=== PATIENT | male | born 1950 | race Caucasian/White ===

== ENCOUNTER 2022-09-14 06:04 | Inpatient (IN) | payer OTHER ==
[~2022-09-14] VITALS: Ht 177.8 cm; Wt 68.5 kg
[2022-09-14] VITALS (7 sets, daily range): BP systolic 127–144; BP diastolic 75–85
[~2022-09-14 06:04] MED LIST: CYCL-707 PO; FINA5TAB2 PO; GABA600T4 PO; GLIM2TAB4 PO; METF10004 PO; METO1TAB32 PO; RAPA8CAP4 PO
[2022-09-14] MEDS ORDERED: LR 1,000 ML IV SCH (06:20)
[2022-09-14] MEDS ORDERED: ceFAZolin SOD 2 GM in IV 1 EA IV ONE (06:30)
[2022-09-14] MEDS ORDERED: VANCOMYCIN HCL 1,000 MG, VIAL MATE ADAPTER 1 EACH in D5W 250 ML IV ONE (07:15)
[2022-09-14] MEDS ORDERED: ONDANSETRON 4MG 2ML VIAL IV PRN ×2 (07:15→11:10)
[2022-09-14] MEDS ORDERED: PERCOCET 5MG/325MG TAB PO PRN (07:15)
[2022-09-14] MEDS ORDERED: GLUCAGON INJ 1MG VIAL SC PRN (07:15)
[2022-09-14] MEDS ORDERED: CYCLOBENZAPRINE 10MG TABLET PO PRN (07:15)
[2022-09-14] MEDS ORDERED: GLUCOSE 4GM CHEW TABLET PO PRN (07:15)
[2022-09-14] MEDS ORDERED: DEXTROSE 50% 50ML SYRINGE IV PRN (07:15)
[2022-09-14] MEDS ORDERED: MIDAZOLAM INJ 2MG/2ML VIAL As Ordered ONE (07:17)
[2022-09-14] MEDS ORDERED: MANNITOL 25% 12.5GM 50ML VIAL As Ordered ONE (07:17)
[2022-09-14] MEDS ORDERED: FILTER 1.2 MICRON (ADULT TPN/MANNITOL/REMICADE) XX ONE (07:17)
[2022-09-14] MEDS ORDERED: LIDOCAINE 2% 100MG/5ML SDV (FOR ANES.) As Ordered ONE (07:17)
[2022-09-14] MEDS ORDERED: propofoL 200 MG/20 ML VIAL As Ordered ONE (07:17)
[2022-09-14] MEDS ORDERED: fentaNYL 250 MCG/5 ML INJECTION As Ordered ONE (07:17)
[2022-09-14] MEDS ORDERED: ROCURONIUM BROMIDE 50MG/5ML VIAL As Ordered ONE ×3 (07:17→09:53)
[2022-09-14] MEDS ORDERED: LIDOCAINE 1% SDV 30ML VIAL As Ordered ONE (07:18)
[2022-09-14] MEDS ORDERED: BUPIVACAINE HCL 0.25% 30ML VIAL As Ordered ONE (07:18)
[2022-09-14] MEDS ORDERED: GENTAMICIN 80 MG in IV 1 EA IV ONE (07:20)
[2022-09-14] MEDS: INSULIN LISPRO (NovoLOG) PER UNIT SC SCH ×3 (07:30→18:20)
[2022-09-14] MEDS ORDERED: NITR100C2 PO (07:41)
[2022-09-14] MEDS ORDERED: HOME MED LIST COMPLETE! XX SCH (07:45)
[2022-09-14] MEDS ORDERED: METOPROLOL 5 MG/5 ML VIAL As Ordered ONE (07:53)
[2022-09-14] MEDS ORDERED: ACETAMINOPHEN 1000MG 100ML IV BAG As Ordered ONE (08:26)
[2022-09-14] MEDS ORDERED: HYDROmorphone HCL 2MG/ML 1ML VIAL As Ordered ONE (08:27)
[2022-09-14] MEDS ORDERED: ONDANSETRON 4MG 2ML VIAL As Ordered ONE (09:53)
[2022-09-14] MEDS ORDERED: SUGAMMADEX SODIUM 500 MG/5 ML VIAL (BRIDION) As Ordered ONE ×2 (09:53→09:54)
[2022-09-14] MEDS ORDERED: oxyCODONE 5MG TAB PO PRN (11:10)
[2022-09-14] MEDS ORDERED: MORPHINE 2 MG/ML 1ML VIAL IV PRN (11:10)
[2022-09-14] MEDS ORDERED: fentaNYL 100 MCG/2 ML INJECTION IV PRN (11:10)
[2022-09-14] MEDS ORDERED: LABETALOL 100MG/20ML VIAL As Ordered ONE (11:24)
[2022-09-14] MEDS: LABETALOL 100MG/20ML VIAL IV PRN ×2 (11:25→11:50)
[2022-09-14] MEDS: NS 1,000 ML IV SCH (12:04)
[2022-09-14 12:05] LABS: HEMATOCRIT 35.2 % (42.0-52.0); HEMOGLOBIN 10.4 g/dl (13.5-17.5); MEAN CORPUSCULAR HEMOGLOBIN 23.4 pg (27.0-33.0); MEAN CORPUSCULAR HGB CONC 29.5 g/dl (32.0-36.5); MEAN CORPUSCULAR VOLUME 79.1 fl (80.0-96.0); PLATELET COUNT, AUTOMATED 359 10^3/uL (150-450); RED BLOOD COUNT 4.45 10^6/uL (4.30-6.10); WHITE BLOOD COUNT 9.9 10^3/uL (4.0-10.0)
[2022-09-14 12:22] LABS: BLOOD UREA NITROGEN 22 MG/DL (9-23); CALCIUM LEVEL 8.4 MG/DL (8.3-10.6); CARBON DIOXIDE LEVEL 25 MMOL/L (20-31); CHLORIDE LEVEL 101 MMOL/L (98-107); GLOMERULAR FILTRATION RATE > 60.0 (>42); GLUCOSE, FASTING 279 MG/DL (74-106); SODIUM LEVEL 134 MMOL/L (136-145)
[2022-09-14] MEDS: GABAPENTIN 300 MG CAP PO SCH ×2 (13:46→20:03)
[2022-09-14] MEDS: FERROUS SULFATE 325MG TAB PO SCH (13:46)
[2022-09-14] MEDS: DOCUSATE SODIUM 100MG CAPSULE PO SCH ×2 (13:46→20:03)
[2022-09-14] MEDS: FINASTERIDE 5MG TAB PO SCH (13:47)
[2022-09-14] MEDS: ACETAMINOPHEN TAB 650MG DOSE (2X325MG) PO PRN ×2 (13:48→18:57)
[2022-09-14] MEDS: METOPROLOL SUCC *XL* 25MG TAB (TopROL *XL*) PO SCH (14:16)
[2022-09-14] MEDS ORDERED: GENTAMICIN 80 MG in IV 1 EA IV SCH (16:00)
[2022-09-14] MEDS: GENTAMICIN 80 MG in IV 1 EA IV SCH (18:18)
[2022-09-14] MEDS ORDERED: VANCOMYCIN HCL 1,000 MG, VIAL MATE ADAPTER 1 EACH in NS 250 ML IV SCH (20:00)
[2022-09-14] MEDS ORDERED: INSULIN LISPRO (NovoLOG) PER UNIT SC SCH (21:00)
[2022-09-15] MEDS: GENTAMICIN 80 MG in IV 1 EA IV SCH (00:24)
[2022-09-15 02:00] VITALS: BP 133/69
[2022-09-15] MEDS: NS 1,000 ML IV SCH (03:15)
[2022-09-15 05:52] LABS: HEMATOCRIT 33.3 % (42.0-52.0); HEMOGLOBIN 10.1 g/dl (13.5-17.5); MEAN CORPUSCULAR HEMOGLOBIN 23.3 pg (27.0-33.0); MEAN CORPUSCULAR HGB CONC 30.3 g/dl (32.0-36.5); MEAN CORPUSCULAR VOLUME 76.9 fl (80.0-96.0); PLATELET COUNT, AUTOMATED 330 10^3/uL (150-450); RED BLOOD COUNT 4.33 10^6/uL (4.30-6.10); WHITE BLOOD COUNT 10.3 10^3/uL (4.0-10.0)
[2022-09-15 06:00] VITALS: BP 147/84
[2022-09-15] MEDS: PERCOCET 5MG/325MG TAB PO PRN ×2 (06:06→12:21)
[2022-09-15 06:20] LABS: BLOOD UREA NITROGEN 17 MG/DL (9-23); CALCIUM LEVEL 8.3 MG/DL (8.3-10.6); CARBON DIOXIDE LEVEL 25 MMOL/L (20-31); CHLORIDE LEVEL 107 MMOL/L (98-107); CREATININE FOR GFR 0.86 MG/DL (0.70-1.30); GLOMERULAR FILTRATION RATE > 60.0 (>42); GLUCOSE, FASTING 130 MG/DL (74-106); POTASSIUM SERUM 4.3 MMOL/L (3.5-5.1); SODIUM LEVEL 138 MMOL/L (136-145)
[2022-09-15 08:50] VITALS: BP 115/67
[2022-09-15] MEDS: DOCUSATE SODIUM 100MG CAPSULE PO SCH (08:50)
[2022-09-15] MEDS: FERROUS SULFATE 325MG TAB PO SCH (08:50)
[2022-09-15] MEDS: FINASTERIDE 5MG TAB PO SCH (08:50)
[2022-09-15] MEDS: METOPROLOL SUCC *XL* 25MG TAB (TopROL *XL*) PO SCH (08:50)
[2022-09-15] MEDS: GABAPENTIN 300 MG CAP PO SCH (08:50)
[2022-09-15] MEDS: INSULIN LISPRO (NovoLOG) PER UNIT SC SCH ×2 (08:51→13:59)
[2022-09-15] MEDS ORDERED: NITROFURANTOIN (MACROBID) 100 MG CAP PO SCH (09:00)
[2022-09-15 10:00] VITALS: BP 119/67
[2022-09-15 14:00] VITALS: BP 140/74
[2022-09-15] MEDS ORDERED: PERCOCET PO (16:01)
[2022-09-15] MEDS ORDERED: COLA100C5 PO (16:01)
== END 2022-09-15 17:25 | disposition home or self-care (01) | DRG 658 ==
LOC: M OR 06:04 → EDUNIT# 12:00 → M MSPAV 12:41
PROVIDERS: ADMIT Urology; ATTEND Urology
PROC: 0DNU4ZZ Release Omentum, Percutaneous Endoscopic Approach (ICD-10-PCS; 2022-09-14)
PROC: 8E0W4CZ Robotic Assisted Procedure of Trunk Region, Percutaneous Endoscopic Approach (ICD-10-PCS; 2022-09-14)
PROC: 0TB04ZZ Excision of Right Kidney, Percutaneous Endoscopic Approach (ICD-10-PCS; principal; 2022-09-14 07:30)
DX: D30.01 Benign neoplasm of right kidney (principal); Z79.899 Other long term (current) drug therapy; Z88.8 Allergy status to other drugs, medicaments and biological substances; N40.1 Benign prostatic hyperplasia with lower urinary tract symptoms